=== PATIENT | male | born 1955 | race Caucasian/White ===

== ENCOUNTER 2019-12-19 16:21 | Emergency (ER) | payer OTHER ==
[~2019-12-19] VITALS: Wt 68.0 kg
[2019-12-19] MEDS ORDERED: NORCO 5-325 TA1 EACH PO (18:53)
== END 2019-12-19 19:01 | disposition home or self-care (01) ==
LOC: ED 16:21
DX: S92.321A Displaced fracture of second metatarsal bone, right foot, initial encounter for closed fracture (principal); S92.331A Displaced fracture of third metatarsal bone, right foot, initial encounter for closed fracture; F17.200 Nicotine dependence, unspecified, uncomplicated; W22.8XXA Striking against or struck by other objects, initial encounter; Y93.89 Activity, other specified; Y92.89 Other specified places as the place of occurrence of the external cause; Y99.8 Other external cause status

== ENCOUNTER 2022-04-17 10:21 | Inpatient (IN) | payer MEDICARE ==
[~2022-04-17] VITALS: Ht 167.6 cm; Wt 50.2 kg
[~2022-04-17 10:21] MED LIST: NORCO 5-325 TA1 EACH PO
[2022-04-17 10:35] VITALS: BP 110/64
[2022-04-17 10:58] LABS: HEMATOCRIT 40.9 % (42.0-52.0); MEAN CELL VOLUME 88.9 fl (80.0-94.0); MEAN CORPUSCULAR HGB 30.7 pg (27.0-31.0); MEAN CORPUSCULAR HGB CONC 34.5 g/dl (33.0-37.0); MEAN PLATELET VOLUME 9.5 fl (9.6-12.3); PLATELET COUNT AUTOMATED 239 10*3/uL (130-400); RED CELL DISTRI WIDTH 13.5 % (0-14.5); WHITE BLOOD COUNT 4.4 10*3/uL (4.8-10.8)
[2022-04-17 10:59] LABS: MANUAL DIFF REFLEX YES
[2022-04-17 11:10] LABS: ACT PARTIAL THROMBO TIME 30.2 SECONDS (20.0-32.1)
[2022-04-17 11:17] LABS: ALKALINE PHOSPHATASE 50 U/L (45-117); BUN 20 mg/dl (7-24); CHLORIDE 102 mmol/L (98-107); CREATININE 1.09 mg/dL (0.70-1.30); LIPASE 370 U/L (73-393); POTASSIUM 3.9 mmol/L (3.5-5.1); SGOT/AST 50 IU/L (3-35); SGPT/ALT 34 U/L (12-78); SODIUM 132 mmol/L (136-145); TOTAL PROTEIN 7.3 gm/dL (6.4-8.2)
[2022-04-17 11:18] LABS: ATYPICAL LYMPHS 6 % (0-0); BASOPHILS 1 % (0-1); TOTAL CELLS COUNTED 100 #CELLS
[2022-04-17 11:19] LABS: OVALOCYTES FEW; PLATELET SUFFICIENCY NORMAL (NORMAL); POLYCHROMASIA SLIGHT; ROULEAUX SLIGHT; TOXIC GRANULATION SLIGHT; VACUOLATION OF NEUTROPHILS SLIGHT
[2022-04-17 14:55] VITALS: BP 101/57
[2022-04-17 15:00] VITALS: BP 102/60
[2022-04-17 16:00] VITALS: BP 102/63
[2022-04-17] MEDS ORDERED: CARAFATE1 G1 PO (16:35)
[2022-04-17] MEDS ORDERED: XANAX0.5 MG PO (16:36)
[2022-04-17] MEDS ORDERED: KENALOG 0.1%80 GM T (16:38)
[2022-04-17] MEDS ORDERED: OMEPRAZOLE40 MG PO (16:38)
[2022-04-17 20:00] VITALS: BP 100/67
[2022-04-18] VITALS: BP 102/65
[2022-04-18 05:35] LABS: BILIRUBIN Negative (Negative); BLOOD Negative (Negative); CLARITY Clear (Clear); COLOR Dark Yellow (Yellow); GLUCOSE Negative (Negative); KETONE Negative (Negative); LEUKO ESTERASE Negative (Negative); NITRITE Negative (Negative); PH 5.5 (4.5-8.0); SPECIFIC GRAVITY 1.025 (1.001-1.030)
[2022-04-18 05:45] LABS: BACTERIA TRACE
[2022-04-18 05:58] LABS: BUN 19 mg/dl (7-24); CHLORIDE 107 mmol/L (98-107); CREATININE 0.85 mg/dL (0.70-1.30); POTASSIUM 4.4 mmol/L (3.5-5.1); SODIUM 139 mmol/L (136-145)
[2022-04-18 05:59] LABS: CHOLESTEROL 148 mg/dL (<200); SGOT/AST 46 IU/L (3-35); SGPT/ALT 30 U/L (12-78); TOTAL PROTEIN 6.2 gm/dL (6.4-8.2); TRIGLYCERIDES 169 mg/dl (<150)
[2022-04-18 06:03] LABS: ALKALINE PHOSPHATASE 40 U/L (45-117); FREE T4 0.84 ng/dl (0.76-1.46); LDL CHOLESTEROL 93 mg/dL (9-159)
[2022-04-18 06:45] LABS: HEMATOCRIT 40.5 % (42.0-52.0); MEAN CORPUSCULAR HGB 31.5 pg (27.0-31.0); MEAN CORPUSCULAR HGB CONC 33.8 g/dl (33.0-37.0); MEAN PLATELET VOLUME 10.1 fl (9.6-12.3); PLATELET COUNT AUTOMATED 233 10*3/uL (130-400); RED BLOOD COUNT 4.35 10*6/uL (4.50-5.90); RED CELL DISTRI WIDTH 13.7 % (0-14.5); WHITE BLOOD COUNT 3.2 10*3/uL (4.8-10.8)
[2022-04-18 06:46] LABS: MANUAL DIFF REFLEX YES
[2022-04-18 06:47] LABS: MEAN CELL VOLUME 93.1 fl (80.0-94.0)
[2022-04-18 07:05] LABS: ATYPICAL LYMPHS 1 % (0-0); TOTAL CELLS COUNTED 100 #CELLS
[2022-04-18 07:06] LABS: BURR CELLS FEW; PLATELET SUFFICIENCY NORMAL (NORMAL); POLYCHROMASIA SLIGHT; TOXIC GRANULATION SLIGHT
[2022-04-18 08:00] VITALS: BP 98/64
[2022-04-18 08:12] LABS: VITAMIN D, 25-HYDROXY 54.1 ng/mL (30-100)
[2022-04-18 12:00] VITALS: BP 103/55
[2022-04-18 15:28] VITALS: BP 98/60
[2022-04-18 19:47] VITALS: BP 107/45
[2022-04-19 00:58] VITALS: BP 98/53
[2022-04-19 06:06] LABS: ALKALINE PHOSPHATASE 38 U/L (45-117); BUN 14 mg/dl (7-24); CHLORIDE 110 mmol/L (98-107); CREATININE 0.71 mg/dL (0.70-1.30); POTASSIUM 3.8 mmol/L (3.5-5.1); SGOT/AST 36 IU/L (3-35); SGPT/ALT 28 U/L (12-78); SODIUM 142 mmol/L (136-145); TOTAL PROTEIN 5.9 gm/dL (6.4-8.2)
[2022-04-19 06:26] LABS: MEAN CELL VOLUME 90.5 fl (80.0-94.0); MEAN CORPUSCULAR HGB 31.2 pg (27.0-31.0); MEAN CORPUSCULAR HGB CONC 34.4 g/dl (33.0-37.0); MEAN PLATELET VOLUME 10.1 fl (9.6-12.3); PLATELET COUNT AUTOMATED 237 10*3/uL (130-400); RED BLOOD COUNT 3.98 10*6/uL (4.50-5.90); RED CELL DISTRI WIDTH 13.6 % (0-14.5); WHITE BLOOD COUNT 3.7 10*3/uL (4.8-10.8)
[2022-04-19 06:34] LABS: MANUAL DIFF REFLEX YES
[2022-04-19 07:12] LABS: PLATELET SUFFICIENCY NORMAL (NORMAL); TOTAL CELLS COUNTED 100 #CELLS
[2022-04-19 08:00] VITALS: BP 100/60
[2022-04-19 16:00] VITALS: BP 100/64
[2022-04-19 20:00] VITALS: BP 100/50
[2022-04-20] VITALS: BP 98/53
[2022-04-20 05:37] LABS: ALKALINE PHOSPHATASE 44 U/L (45-117); BUN 11 mg/dl (7-24); CHLORIDE 108 mmol/L (98-107); CREATININE 0.79 mg/dL (0.70-1.30); POTASSIUM 3.9 mmol/L (3.5-5.1); SGOT/AST 35 IU/L (3-35); SGPT/ALT 29 U/L (12-78); SODIUM 142 mmol/L (136-145); TOTAL PROTEIN 6.3 gm/dL (6.4-8.2)
[2022-04-20 06:14] LABS: HEMATOCRIT 36.7 % (42.0-52.0); MEAN CELL VOLUME 92.2 fl (80.0-94.0); MEAN CORPUSCULAR HGB 30.9 pg (27.0-31.0); MEAN CORPUSCULAR HGB CONC 33.5 g/dl (33.0-37.0); MEAN PLATELET VOLUME 10.2 fl (9.6-12.3); PLATELET COUNT AUTOMATED 231 10*3/uL (130-400); RED BLOOD COUNT 3.98 10*6/uL (4.50-5.90); RED CELL DISTRI WIDTH 13.8 % (0-14.5); WHITE BLOOD COUNT 3.6 10*3/uL (4.8-10.8)
[2022-04-20 06:27] LABS: MANUAL DIFF REFLEX YES
[2022-04-20 07:05] LABS: PLATELET SUFFICIENCY NORMAL (NORMAL); TOTAL CELLS COUNTED 100 #CELLS
[2022-04-20 07:53] VITALS: BP 97/62
[2022-04-20 12:00] VITALS: BP 100/68
[2022-04-20 16:00] VITALS: BP 105/53
[2022-04-20 20:00] VITALS: BP 105/53
[2022-04-21] VITALS: BP 96/60
[2022-04-21 05:04] LABS: BUN 10 mg/dl (7-24); CHLORIDE 109 mmol/L (98-107); CREATININE 0.78 mg/dL (0.70-1.30); POTASSIUM 3.6 mmol/L (3.5-5.1); SODIUM 141 mmol/L (136-145)
[2022-04-21 06:27] LABS: HEMATOCRIT 37.1 % (42.0-52.0); MEAN CELL VOLUME 92.5 fl (80.0-94.0); MEAN CORPUSCULAR HGB 30.9 pg (27.0-31.0); MEAN CORPUSCULAR HGB CONC 33.4 g/dl (33.0-37.0); MEAN PLATELET VOLUME 10.9 fl (9.6-12.3); PLATELET COUNT AUTOMATED 233 10*3/uL (130-400); RED BLOOD COUNT 4.01 10*6/uL (4.50-5.90); RED CELL DISTRI WIDTH 13.8 % (0-14.5)
[2022-04-21 06:30] LABS: MANUAL DIFF REFLEX YES
[2022-04-21 07:39] LABS: ATYPICAL LYMPHS 3 % (0-0); TOTAL CELLS COUNTED 100 #CELLS
[2022-04-21 07:40] LABS: BURR CELLS FEW; OVALOCYTES FEW; PLATELET SUFFICIENCY NORMAL (NORMAL); POLYCHROMASIA SLIGHT
[2022-04-21 07:57] VITALS: BP 101/60
[2022-04-21 12:00] VITALS: BP 102/61
[2022-04-21 16:00] VITALS: BP 106/68
[2022-04-21 20:00] VITALS: BP 106/66
[2022-04-22] VITALS: BP 110/68
[2022-04-22 07:11] LABS: BASO % 0.3 % (0.0-1.0); EOS # 0.1 10*3/uL (0.0-0.4); EOS % 3.3 % (1.0-4.0); HEMATOCRIT 37.1 % (42.0-52.0); LYMPH # 0.6 10*3/uL (1.3-4.4); LYMPH % 16.3 % (27.0-41.0); MEAN CELL VOLUME 92.8 fl (80.0-94.0); MEAN CORPUSCULAR HGB 30.8 pg (27.0-31.0); MEAN CORPUSCULAR HGB CONC 33.2 g/dl (33.0-37.0); MONO # 0.2 10*3/uL (0.1-1.0); MONO % 6.3 % (3.0-9.0); NEUT # 2.6 10*3/uL (2.3-7.9); NEUT % 72.4 % (47.0-73.0); PLATELET COUNT AUTOMATED 284 10*3/uL (130-400); RED CELL DISTRI WIDTH 14.1 % (0-14.5); WHITE BLOOD COUNT 3.6 10*3/uL (4.8-10.8)
[2022-04-22 07:29] LABS: BUN 10 mg/dl (7-24); CHLORIDE 109 mmol/L (98-107); POTASSIUM 3.7 mmol/L (3.5-5.1); SODIUM 141 mmol/L (136-145)
[2022-04-22 07:31] LABS: CREATININE 0.66 mg/dL (0.70-1.30)
[2022-04-22 08:00] VITALS: BP 117/67
[2022-04-22 12:00] VITALS: BP 107/73
[2022-04-22] MEDS ORDERED: FLUCONAZOLE100 MG PO (12:58)
[2022-04-22] MEDS ORDERED: ZITHROMAX250 MG PO (12:58)
[2022-04-22] MEDS ORDERED: Carafate1 GM PO (12:59)
[2022-04-22] MEDS ORDERED: MUCINEX ER600 MG PO (12:59)
[2022-04-22 16:00] VITALS: BP 134/76
[2022-04-22 18:13] VITALS: BP 130/70
== END 2022-04-22 19:13 | disposition home health service (06) | DRG 871 ==
LOC: ED 10:21 → ICCU 12:52 → EDHOLD 12:52 → ICCU 14:23 → 4E 04-21 08:11
PROVIDERS: Emergency Medicine; Family Medicine; Internal Medicine; Student in an Organized Health Care Education/Training Program; ADMIT Internal Medicine; ATTEND Internal Medicine
DX: A41.9 Sepsis, unspecified organism (principal); E43 Unspecified severe protein-calorie malnutrition; J18.9 Pneumonia, unspecified organism; J96.01 Acute respiratory failure with hypoxia; E87.1 Hypo-osmolality and hyponatremia; B37.0 Candidal stomatitis; Z68.1 Body mass index [BMI] 19.9 or less, adult; K21.9 Gastro-esophageal reflux disease without esophagitis; E78.5 Hyperlipidemia, unspecified; R73.9 Hyperglycemia, unspecified; E83.41 Hypermagnesemia; R74.01 Elevation of levels of liver transaminase levels; E53.8 Deficiency of other specified B group vitamins; Z20.822 Contact with and (suspected) exposure to COVID-19; Z81.8 Family history of other mental and behavioral disorders